=== PATIENT | male | born 1960 | race Caucasian/White ===

== ENCOUNTER 2021-12-13 08:10 | Inpatient (IN) | payer OTHER ==
[~2021-12-13] VITALS: Ht 170.2 cm; Wt 81.6 kg
[~2021-12-13 08:10] MED LIST: ASPIRIN81 M2 PO; ATORVASTATIN CA80 MG PO; FENOFIBRATE160 MG PO; FISH OIL 1,001000 M1 PO; GLUMETZA500 PO; GLYBURIDE 5 MG T5 M1 PO; MULTI-VITAMIN1 EAC5 PO; NITROGLYCERIN0.4 MG SL; OMEPRAZOLE 20 M20 M1 PO; PRINIVIL20 MG PO; TOPROL XL50 MG PO; VICODIN 5-5001 EACH PO
[2021-12-13 08:17] VITALS: BP 139/82
[2021-12-13 08:46] LABS: ABSOLUTE BASOPHILS 0.1 thou/uL (0.0-0.2); ABSOLUTE EOSINOPHILS 0.3 thou/uL (0.0-0.7); ABSOLUTE LYMPHOCYTES 1.5 thou/uL (0.8-5.3); ABSOLUTE MONOCYTES 0.8 thou/uL (0.0-1.2); ABSOLUTE NEUTROPHILS 8.1 thou/uL (1.6-8.1); EOSINOPHILS 2.5 %; HEMATOCRIT 40.8 % (42.0-52.0); HEMOGLOBIN 13.8 gm/dL (14.0-18.0); LYMPHOCYTES 13.7 %; MCH 30.8 pg (26.0-34.0); MCHC 33.7 g/dL (28.0-37.0); MCV 91.4 fL (80.0-100.0); MONOCYTES 7.4 %; MPV 9.1 fl. (7.2-11.1); NUCLEATED RBCS 0 /100WBC; PLATELET COUNT* 236 thou/uL (150-400); POLYS 75.4 %; RBC 4.47 mil/uL (4.50-6.00); RDW-CV 13.7 % (10.5-14.5); WBC 10.7 thou/uL (4.0-11.0)
[2021-12-13 09:00] LABS: CALCIUM 9.4 mg/dL (8.5-10.1); CREATININE 2.4 mg/dL (0.6-1.3); POTASSIUM 5.4 mmol/L (3.5-5.1)
[2021-12-13 09:11] LABS: ALBUMIN 3.7 g/dL (3.4-5.0); MAGNESIUM 1.8 mg/dL (1.8-2.4); TOTAL BILIRUBIN 0.2 mg/dL (<0.1-1.0); TOTAL PROTEIN 8.1 g/dL (6.4-8.2)
[2021-12-13 10:42] LABS: APTT 26.5 Seconds (25.0-31.3); PROTIME 9.9 Seconds (9.20-11.50)
[2021-12-13 11:11] LABS: ANION GAP 9 mmol/L (7-16); BUN 55 mg/dL (7-18); CALCIUM 9.5 mg/dL (8.5-10.1); CHLORIDE 101 mmol/L (98-107); CHOLESTEROL 181 mg/dL (<200); CO2 24 mmol/L (21-32); CREATININE 2.3 mg/dL (0.6-1.3); GLUCOSE 329 mg/dL (70-99); HDL CHOLESTEROL 45 mg/dL (>40); LDL CHOLESTEROL 78 mg/dL (<100); POTASSIUM 5.8 mmol/L (3.5-5.1); SODIUM 134 mmol/L (136-145); TRIGLYCERIDE 290 mg/dL (<150); VLDL 58 mg/dL (<40)
[2021-12-13 11:20] LABS: SERUM ASSESSMENT Clear
--- NOTE | 2021-12-13 12:20 | CON ---
[address] [address] CONSULTATION Name: TONJA NI Room: [address] IN .Roberto.#: [id number] Admission: 12/13/21 Attend Phys: Elizabeth No Discharge: Date of : 60 Report #: [id number] THIS REPORT FOR: cc: Jabier Edward Russell J. DO Biggs, F. Douglas MD [facility] ~ DATE OF CONSULTATION: 12/13/2021 HISTORY OF PRESENT ILLNESS: I was asked by the hospitalist and the ER physician to see this 61-year-old white male in the ER. He was seen for chest pain. This man has a history of coronary artery disease. He had four stents [place] [address] [facility]. He has essential hypertension and non-insulin dependent diabetes and hypercholesterolemia. He had an admission at [facility] with chest pain again in 2018. He apparently did not get a cardiac catheterization. He had what he terms as many tests and nothing was found. He comes in today with the same chest pain that he had at that time he had his stents as well as the same chest pain as he had in 2018. He describes the chest pain as substernal. It is a dull pressure or tightness. It is a 6 on a scale of 10. It began last night around midnight and he had it for 8-1/2 hours until he finally took some nitroglycerin this morning and at home, which were old more than 2 years old and they did not burn under his tongue but they did cause a mild headache and they did cause partial relief of his pain. He did come to the ER, he got more nitroglycerin in the ER and his chest pain went down to less than 1. His EKG initially in the ER showed mild ST segment elevation in lead III and biphasic T waves in lead III as well as aVF. There was also a mildly abnormal T-wave in 2. After he got nitroglycerin in the ER, his pain did essentially resolve. It is minimal now. His EKG showed resolution of the ST segment elevation in lead III, but now biphasic T waves in lead II with an inverted T-wave in lead III and inverted T-wave in aVF. Initial troponin was normal, I believe 41. Subsequent troponins are pending. He was taking aspirin up until a few months ago when he saw that people are being told not to take aspirin and he stopped. His chest x-ray is pending. HOME MEDICATIONS: Include lisinopril 20 mg daily, atorvastatin 80 mg daily, metformin, he says one tablet daily, does not know the dose, metoprolol 50 mg b.i.d., omeprazole 20 mg daily, fenofibrate 160 mg daily, glyburide 5 mg daily, multivitamin daily, omega 3 1000 mg t.i.d. and p.r.n. nitroglycerin. ALLERGIES: He has no known allergies. SOCIAL HISTORY: He does drink alcohol, but recreationally only. He does not use drugs or smoke. He does have a past history of smoking, however. REVIEW OF SYSTEMS: Completely unremarkable except as per the history of present illness and past medical history. [address] [address] CONSULTATION Name: TONJA NI Room: [address] IN M.R.#: [id number] Admission: 12/13/21 Attend Phys: Nahid AvilaElizabeth Discharge: Date of : 60 Report #: [id number] FAMILY HISTORY: Remarkable for family history of coronary artery disease. PHYSICAL EXAMINATION: GENERAL: He presents as a well-developed, well-nourished white male in no acute distress. VITAL SIGNS: Pulse was 60 when I saw him with a blood pressure of 112/80, temperature is 37.1, pulse ox was 98%. His respirations are 18. HEENT: Head atraumatic. NECK: There is no jugular venous distention or hepatojugular reflux. The thyroid is not enlarged. LUNGS: Clear to auscultation and percussion. HEART: Revealed normal first and second heart sound. There is soft S4. There is no S3. There are no murmurs, rubs, thrills, heaves or gallops. PMI is nondisplaced. ABDOMEN: Soft, flat, nontender, no palpable masses, no organomegaly. EXTREMITIES: Revealed no cyanosis, clubbing or edema. IMPRESSION: 1. Chest pain, likely ischemic and likely near ST segment elevation myocardial infarction, that is probably going to become non-ST segment elevation myocardial infarction. 2. Coronary artery disease. 3. Status post 4 coronary stents. 4. Chronic kidney disease stage II. 5. Essential hypertension. 6. Non-insulin dependent diabetes mellitus. 7. Hypercholesterolemia. RECOMMENDATIONS: I have discussed his case with Dr. Tom Sparrow and at this point, we will not take him to the computer lab assistant unless he has more pain. We will treat him aggressively with nitrates, beta blockers, aspirin, heparin and Aggrastat. Thank you very much for asking me to see the patient. If there are any questions, please feel free to contact me. <ELECTRONICALLY SIGNED> By: Dolly Tom MD, [facility] 12/13/21 1220 0943 [id number]. Jamal Tom MD, FACC /nt
--- NOTE | 2021-12-13 12:46 | EKG ---
[place] [address] ELECTROCARDIOGRAM REPORT Name: TONJA NI Room: [place] [address] ADM IN 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 Jamal Tom MD, [facility] /EPI
--- NOTE | 2021-12-13 12:47 | EKG ---
[place] [address] ELECTROCARDIOGRAM REPORT Name: TONJA NI Room: [place] [address] ADM IN ..#: [id number] Admission: 12/13/21 Attend Phys: Nahid Avila Discharge: Date of : 60 Date of Service: 12/13/21 0845 Report #: [id number] THIS REPORT FOR: //name// [facility] ED Test Date: 2021-12-13 Test Time: 08:45:40 Pat Name: TONJA NI Department: Room: [facility] Gender: M Appliance Technician: JOSEPH : 1960 Requested By: Robel Hernandez Order Number: [id number] MD: Jamal Tom Measurements Intervals [place] Rate: 68 P: 6 AR: 179 QRS: -5 QRSD: 101 T: -28 QT: 381 QTc: 406 Interpretive Statements Sinus rhythm Abnormal T, probable ischemia, inferior leads Compared to ECG 12/13/2021 08:14:36 T-wave abnormality now present Possible ischemia now present Electronically Signed On 12-13-2021 12:46:54 OCCUPATIONAL HEALTH NURSE SUPERVISOR by Jamal Tom [email or web address] <ELECTRONICALLY SIGNED> By: Dolly Tom MD, [facility] 12/13/21 1246 0845 0845 Dolly Tom MD, [facility] /EPI
[2021-12-13] MEDS ORDERED: ACTOS 30 MG TAB30 M1 PO (12:48)
[2021-12-13] MEDS ORDERED: ASA81BEC PO (12:48)
[2021-12-13] MEDS ORDERED: COQ-1030 MG PO (12:49)
[2021-12-13 14:15] VITALS: BP 101/50
[2021-12-13 18:00] VITALS: BP 131/72
[2021-12-13 22:00] VITALS: BP 110/56
[2021-12-14] VITALS (10 sets, daily range): BP systolic 100–138; BP diastolic 53–72
--- NOTE | 2021-12-14 10:39 | EKG ---
[place] [address] ELECTROCARDIOGRAM REPORT Name: TONJA NI Room: [place] [address] ADM IN ..#: [id number] Admission: 12/13/21 Attend Phys: Nahid Avila Discharge: Date of : 60 Date of Service: 12/14/21 1017 Report #: [id number] THIS REPORT FOR: //name// [facility] Test Date: 2021-12-14 Test Time: 10:17:48 Pat Name: TONJA NI Department: Room: [place] [address] Gender: M Rn Procedure: TM : 1960 Requested By: Los Nassar Order Number: [id number] Winston MD: Los Nassar Measurements Intervals [place] Rate: 62 P: 13 CT: 182 QRS: -28 QRSD: 106 T: -12 QT: 397 QTc: 404 Interpretive Statements Sinus rhythm Inferior infarct, old Compared to ECG 12/13/2021 08:45:40 no change Electronically Signed On 12-14-2021 10:38:48 APPLICATION SECURITY CONSULTANT by Los Nassar [email or web address] <ELECTRONICALLY SIGNED> By: Los Nassar MD, [facility] 12/14/21 1038 1017 1017 Los Nassar MD, [facility] /EPI
--- NOTE | 2021-12-14 15:50 | 2DMMODE ---
[place] [address] 2 D/M-MODE ECHOCARDIOGRAM Name: LASTTONJAJAVIER CUBA Room: [place] [address] ADM IN Andrés#: [id number] Admission: 12/13/21 Attend Phys: Nahid Avila Discharge: Date of : 60 Date of Service: 12/14/21 1550 Report #: [id number] THIS REPORT FOR: cc: Jabier Edward Russell J. DO Blick,Los Jackman MD [facility] ~ APPROVED REPORT Study performed: 12/14/2021 14:11:35 EXAM: Comprehensive 2D, Doppler, and color-flow Echocardiogram Patient Location: In-Patient Room #: [facility] Status: routine BSA: 1.93 HR: 65 bpm BP: 124/69 mmHg Rhythm: NSR Other Information Study Quality: Good Indications Acute IN 2D Dimensions IVSd: 9.63 (7-11mm) LVOT Diam: 20.82 (18-24mm) LVDd: 55.06 mm PWd: 10.01 (7-11mm) Ascending Ao: 31.88 (22-36mm) LVDs: 31.84 (25-40mm) Aortic Root: 33.51 mm Volumes Left Atrial Volume (Systole) LA ESV Index: 25.30 mL/m2 Aortic Valve AoV Peak Brant.: 1.78 m/s AO Peak Gr.: 12.74 mmHg LVOT Max P.43 mmHg AO Mean Gr.: 6.79 mmHg LVOT Mean P.49 mmHg LVOT Max V: 1.27 m/s AO V2 VTI: 35.24 cm LVOT Mean V: 0.70 m/s SANDRA (VTI): 2.51 cm2 LVOT V1 VTI: 25.96 [place] [address] 2 D/M-MODE ECHOCARDIOGRAM Name: TONJA NI Room: [address] IN [facility]#: [id number] Admission: 12/13/21 Attend Phys: Nahid Avila Discharge: Date of : 60 Date of Service: 12/14/21 1550 Report #: [id number] Mitral Valve E/A Ratio: 1.10 MV Decel. Time: 184.40 ms MV E Max Brant.: 0.86 m/s MV PHT: 53.48 ms MVA (PHT): 4.11 cm2 TDI E/Lateral E': 5.73 E/Medial E': 7.82 Medial E' Brant.: 0.11 m/s Lateral E' Brant.: 0.15 m/s Pulmonary Valve PV Peak Brant.: 1.11 m/s PV Peak Gr.: 4.89 mmHg Tricuspid Valve RAP Estimate: 5.00 mmHg TR Peak Gr.: 25.48 mmHg RVSP: 30.00 mmHg PA Pressure: 30.00 mmHg Left Ventricle The left ventricle is normal size. severe hypokinesis of the base of the inferior wall There is normal left ventricular wall thickness. Left ventricular systolic function is mildly decreased.. LVEF is 40-45%. The left ventricular diastolic function is normal. Right Ventricle The right ventricle is normal size. The right ventricular systolic function is normal. Atria The left atrium size is normal. The right atrium size is normal. Aortic Valve Mild aortic valve sclerosis. No aortic regurgitation is present. There is no aortic valvular stenosis. Mitral Valve There is mitral annular calcification. Trace mitral regurgitation. No evidence of mitral valve stenosis. Tricuspid Valve The tricuspid valve is normal in structure. [place] [address] 2 D/M-MODE ECHOCARDIOGRAM Name: TONJA NI Room: [address] IN [facility]#: [id number] Admission: 12/13/21 Attend Phys: Nahid Avila Discharge: Date of : 60 Date of Service: 12/14/21 1550 Report #: [id number] Pulmonic Valve The pulmonary valve is normal in structure. Trace pulmonic regurgitation. Great Vessels The aortic root is normal in size. IVC is normal in size and collapses >50% with inspiration. Pericardium There is no pericardial effusion. <Conclusion> LVEF is 40-45%. severe hypokinesis of the base of the inferior wall Mild aortic valve sclerosis. <ELECTRONICALLY SIGNED> By: Los Nassar MD, [facility] 12/14/21 [phone] Los Nassar MD, FAC /INF
--- NOTE | 2021-12-14 16:59 | CARD ---
[address] [address] CARDIAC CATH REPORT Name: TONJA NI Room: [address] IN [facility]#: [id number] Admission: 12/13/21 Attend Phys: Elizabeth No Discharge: Date of : 60 Report #: [id number] THIS REPORT FOR: cc: Jabier Edward Russell J. DO Blick,Los Jackman MD [facility] ~ APPROVED REPORT Study performed: 12/14/2021 08:08:49 Patient Details Patient Status: In-Patient Room #: 17 The patient is a 61 year-old male Event Personnel Dr Nassar, Sahil Deleon RTR, Donna Sood RN, Yrn Hilario RN, Jenn Lim RTR Procedures Performed Left Heart Cath without LV gram, Drug Eluting stent placement RCA Indication Abnormal ECG, Non-STEMI (>12 hrs to = 24 hrs), Chest pain Risk Factors Hypercholesterolemia, Coronary Artery DiseaseHypertension, Diabetes Previous Procedures/Diagnoses Previous PCI Admission/Lab Medications/Medications given during procedure Glycoprotein IllbIlla Inhibitors, Heparin Unfract. Procedure Narrative The patient was brought electively to the Cardiac Catheterization Laboratory and was prepped and draped in a sterile manner. The right wrist was infiltrated with 2% Lidocaine subcutaneous anesthesia. IV conscious sedation was used throughout procedure with appropriate monitoring and was performed in the presence of a registered nurse who was an independent trained observer other than the physician performing the procedure. A Slender Glidesheath sheath was inserted into the right radial artery. Coronary [place] [address] CARDIAC CATH REPORT Name: TONJA NI Room: [address] IN [facility]#: [id number] Admission: 12/13/21 Attend Phys: Elizabeth No Discharge: Date of : 60 Report #: [id number] using coronary diagnostic catheters. The right coronary system was accessed and visualized with a Diagnostic 6Fr JR4 catheter. The left coronary system was accessed and visualized with a Diagnostic 6Fr JL4 catheter. Left ventricular/Aortic Valve gradient assessed via catheter pullback. Closure device was deployed with a 6 Fr Radial Band. The patient tolerated the procedure well and there were no complications associated with the procedure. There was no hematoma. Intraoperative Conscious Sedation Sedation start time: 904 Case end Time: 09 Fentanyl 50.0 mcg Versed 2.0 mg Fluoro Time: 7.8 minutes Dose: DAP 22048 cGycm2 1544 mGy Contrast Type and Amount: Visipaque 115 mL Coronary Angiography The patient's coronary anatomy is right dominant. Diagnostic Cath Left Main 30% mid stenosis LAD 40% proximal stenosis Circumflex stent in the mid circumflex had 0% restenosis Right Coronary Stent in the proximal RCA had 0% stenosis, althought there was a proximal 60% stenosis proximal to the stent. The stent in the mid RCA had a 99% restenosis. The stent in the distal RCA had a 30% restenosis. Ramus 0% stenosis Left Ventriculography Left Ventriculography was not performed. Hemodynamics The aortic pressure is 95/52 mmHg with a mean of 72 mmHg. The left ventricular pressure is 101/10 mmHg with a mean of mmHg. The left ventricular end diastolic pressure is 12 mmHg. There was no gradient across the aortic valve upon pullback. Pullback from the left ventricle to the aorta revealed no gradient across the aortic valve. PCI Technique Lesion Anticoagulation was achieved with Heparin. The patient was on an infustion of IV aggrastat at the [place] [address] CARDIAC CATH REPORT Name: TONJA NI Room: [address] [place] [facility]#: [id number] Admission: 12/13/21 Attend Phys: Elizabeth No Discharge: Date of : 60 Report #: [id number] intervention was performed on the mid right coronary artery. The lesion stenosis prior to intervention was 99% with ANI 3 flow. A 6F JR 4.0 Guide Catheter was used to engage the Right ostium. A IG: BMW 190cm Interventional Guidewire was used to cross the lesion. BALLOON DILATION A Balloon catheter Euphora SC 2.5x10 was inserted and inflated up to 9atm for 12seconds. Repeat angiography revealed the following post-dilatation results: 40% stenosis. Additional Inflation: 12atm for 8seconds. Additional Inflation: 17atm for 12seconds. STENT DEPLOYMENT A drug-eluting stent [place] RX Stent 3.5X15mm was inserted and inflated up to 18atm for 14seconds. Repeat angiography revealed the following post-stent deployment results: 0. Additional Inflation: 16atm for 17seconds. Hugo wire was required to advance the stent to the mid RCA. Final angiography reveals 0 % stenosis with ANI 3 flow. PCI Technique Lesion 2 Percutaneous Coronary Intervention was performed on the proximal right coronary artery. Percutaneous coronary intervention was performed on the proximal right coronary artery. The lesion stenosis prior to intervention was 60% with ANI 3 flow. A JR4 Guide Catheter was used to engage the RCA ostium. A IG: BMW 190cm Interventional Guidewire was used to cross the lesion. Stent Deployment A drug-eluting stent 3.5 s 8 mm was inserted and inflated up to 18atm for 10seconds. Repeat angiography revealed the following post-stent deployment results: 0% stenosis. Final angiography reveals 0 % stenosis with ANI 3 flow. Conclusion 1. 0% restenosis of a stent in the mid circumflex artery. 2. 99% restenosis of a stent in the mid RCA 3. No restenosis of a stent in the proximal RCA, although there was a 60% stenosis noted proximal to the stent. 4. No restenosis of a stent in the distal RCA 5. successful placement of drug eluting stents in the mid [place] [address] CARDIAC CATH REPORT Name: TONJA NI Room: [address] [place] [facility]#: [id number] Admission: 12/13/21 Attend Phys: Elizabeth No Discharge: Date of : 60 Report #: [id number] Recommendations Smoking Cessation Medications Administered Prasugrel <ELECTRONICALLY SIGNED> By: Lso Nassar MD, FACC 12/14/211657 57 57Dajessie Nassar MD, FAC /INF
[2021-12-15 00:36] VITALS: BP 115/53
[2021-12-15 05:10] VITALS: BP 130/50
[2021-12-15 05:29] LABS: HEMATOCRIT 35.8 % (42.0-52.0); HEMOGLOBIN 11.9 gm/dL (14.0-18.0); MCH 30.2 pg (26.0-34.0); MCHC 33.3 g/dL (28.0-37.0); MCV 90.7 fL (80.0-100.0); MPV 8.8 fl. (7.2-11.1); RBC 3.95 mil/uL (4.50-6.00); RDW-CV 13.3 % (10.5-14.5); WBC 9.2 thou/uL (4.0-11.0)
[2021-12-15 05:57] LABS: CALCIUM 8.6 mg/dL (8.5-10.1); CREATININE 1.9 mg/dL (0.6-1.3); POTASSIUM 4.9 mmol/L (3.5-5.1)
[2021-12-15] MEDS ORDERED: EFFIENT10 MG PO (10:42)
[2021-12-15 11:32] VITALS: BP 128/77
== END 2021-12-15 12:18 | disposition home or self-care (01) | DRG 247 ==
LOC: M.ERS 08:10 → M.2W 09:48 → M.TBA-ER 09:48 → M.2W 12-14 12:21
PROVIDERS: Emergency Medicine Emergency Medical Services; Internal Medicine; Internal Medicine Cardiovascular Disease; ADMIT Internal Medicine; ATTEND Internal Medicine
PROC: 027035Z Dilation of Coronary Artery, One Artery with Two Drug-eluting Intraluminal Devices, Percutaneous Approach (ICD-10-PCS; principal; 2021-12-14)
PROC: 4A023N7 Measurement of Cardiac Sampling and Pressure, Left Heart, Percutaneous Approach (ICD-10-PCS; principal; 2021-12-14)
PROC: 3E03317 Introduction of Other Thrombolytic into Peripheral Vein, Percutaneous Approach (ICD-10-PCS; principal; 2021-12-14)
PROC: B211YZZ Fluoroscopy of Multiple Coronary Arteries using Other Contrast (ICD-10-PCS; principal; 2021-12-14)
DX: I21.4 Non-ST elevation (NSTEMI) myocardial infarction (principal); I42.9 Cardiomyopathy, unspecified; I25.110 Atherosclerotic heart disease of native coronary artery with unstable angina pectoris; Z20.822 Contact with and (suspected) exposure to COVID-19; E78.00 Pure hypercholesterolemia, unspecified; J42 Unspecified chronic bronchitis; I12.9 Hypertensive chronic kidney disease with stage 1 through stage 4 chronic kidney disease, or unspecified chronic kidney disease; E11.22 Type 2 diabetes mellitus with diabetic chronic kidney disease; F17.210 Nicotine dependence, cigarettes, uncomplicated; F17.220 Nicotine dependence, chewing tobacco, uncomplicated; N18.2 Chronic kidney disease, stage 2 (mild); E78.5 Hyperlipidemia, unspecified; Z95.5 Presence of coronary angioplasty implant and graft; Z79.899 Other long term (current) drug therapy; Z79.84 Long term (current) use of oral hypoglycemic drugs; Z82.49 Family history of ischemic heart disease and other diseases of the circulatory system; Z71.6 Tobacco abuse counseling; Z80.1 Family history of malignant neoplasm of trachea, bronchus and lung